=== PATIENT | male | born 1995 | race Caucasian/White ===

== ENCOUNTER 2017-07-03 20:31 | Emergency (ER) | payer OTHER ==
[2017-07-03] MEDS ORDERED: Ibuprofen TAB* 800 MG PO ONE (22:39)
[2017-07-04 00:03] VITALS: BP 137/69
--- NOTE | 2017-07-04 02:32 | ED ---
Jessy Diaz Rebecca, scribed for Shannon Alonzo MD on 07/03/17 at 2253 . Upper Extremity Pain - HPI Summary HPI Summary: Pt is a 21 y/o M who presents to ED c/o acute on chronic R shoulder and arm pain. Pt reports R shoulder pain has been chronic, though gradually worsening recently. Cites pain as being the worst on the medial side of the right elbow, which has been present for a few weeks but also gradually worsening. Pain is currently moderate, ranked 5/10 and characterized as aching and sharp. Has been treating symptoms with ice and Ibuprofen. Sx slightly alleviated by sleeping with the arm straight and aggravated by nothing. Additionally c/o right hand finger numbness. Pt has an orthopedic appointment scheduled for 3 days from today. - History of Current Complaint Chief Complaint: EDShoulderClavicleInj Stated Complaint: ARM INJURY Time Seen by Provider: 07/03/17 22:30 Hx Obtained From: Patient Onset/Duration: Still Present Timing: Lasting Weeks Severity Initially: Mild Severity Currently: Moderate - 5/10 Pain Location: Shoulder - Right, Elbow - Right Character: Sharp, Aching Aggravating Factor(s): Nothing Alleviating Factor(s): Other - Sleeping with arm straight Associated Signs & Symptoms: Positive: Numbness/Tingling - Fingers - Allergies/Home Medications Allergies/Adverse Reactions: Allergies Allergy/AdvReac Type Severity Reaction Status Date / Time No Known Allergies Allergy Verified 07/03/17 20:47 PMH/Surg Hx/FS Hx/Imm Hx Previously Healthy: Yes Endocrine/Hematology History: Denies: Hx Diabetes Cardiovascular History: Denies: Hx Coronary Artery Disease, Hx Hypertension Infectious Disease History: No Infectious Disease History: Denies: Traveled Outside the [place] in Last 30 Days - Family History Known Family History: Positive: Hypertension - Social History Alcohol Use: None Substance Use Type: Reports: None Smoking Status (MU): Never Smoked Tobacco Review of Systems Positive: Arthralgia - R shoulder and elbow pain Positive: Numbness - Right fingers All Other Systems Reviewed And Are Negative: Yes Physical Exam - Summary Physical Exam Summary: VITAL SIGNS: Reviewed. GENERAL: ~Patient is a well-developed and nourished male who is lying comfortable in the stretcher. Patient is not in any acute respiratory distress. HEAD AND FACE: No signs of trauma. No ecchymosis, hematomas or skull depressions. No sinus tenderness. EYES: PERRLA, EOMI x 2, No injected conjunctiva, no nystagmus. EARS: Hearing grossly intact. Ear canals and tympanic membranes are within normal limits. MOUTH: Oropharynx within normal limits. NECK: Supple, trachea is midline, no adenopathy, no JVD, no carotid bruit, no c- spine tenderness, neck with full ROM. CHEST: Symmetric, no tenderness at palpation LUNGS: Clear to auscultation bilaterally. No wheezing or crackles. CVS: Regular rate and rhythm, S1 and S2 present, no murmurs or gallops appreciated. EXTREMITIES: FROM in all major joints, no edema, no cyanosis or clubbing. Tenderness over the medial side of the right elbow. NEURO: Alert and oriented x 3. No acute neurological deficits. Speech is normal and follows commands. SKIN: Dry and warm Triage Information Reviewed: Yes Vital Signs On Initial Exam: Initial Vitals Temp Pulse Resp BP Pulse Ox 99 F 87 16 147/70 99 07/03/17 20:45 07/03/17 20:45 07/03/17 20:45 07/03/17 20:45 07/03/17 20:45 Vital Signs Reviewed: Yes Diagnostics - Vital Signs Vital Signs Temp Pulse Resp BP Pulse Ox 07/03/17 22:26 69 99 07/03/17 22:24 135/63 07/03/17 20:45 99 F 87 16 147/70 99 - Laboratory Lab Statement: Any lab studies that have been ordered have been reviewed, and results considered in the medical decision making process. - Radiology Shoulder XR Xray Interpretation: No Acute Changes Radiology Interpretation Completed By: ED Physician Re-Evaluation - Re-Evaluation First Eval Re-Evaluation Time: 23:44 Change: Improved Comment: Discussed results and D/C plan. Pt understands and agrees. Course/Dx - Course Assessment/Plan: Pt is a 21 y/o M who presents to ED c/o acute on chronic R shoulder and arm pain. Cites pain as being the worst on the medial side of the right elbow, which has been present for a few weeks but gradually worsening. Pain is currently moderate, ranked 5/10 and characterized as aching and sharp. Has been treating symptoms with ice and Ibuprofen. Sx slightly alleviated by sleeping with the arm straight. Additionally c/o right hand finger numbness. Pt has an orthopedic appointment scheduled for 3 days from today. Shoulder XR reveals no acute findings. In the ED course pt was given Motrin. He will be D/C to home with Dx of medial epicondylitis of the R elbow. He understands and agrees. - Diagnoses Provider Diagnoses: Medial epicondylitis, right elbow Discharge - Discharge Plan Condition: Stable Disposition: HOME Patient Education Materials: Tennis Elbow (ED) Referrals: [facility] - Kyle MONGE [Primary Care Provider] - Additional Instructions: RETURN TO EMERGENCY DEPARTMENT FOR ANY NEW OR WORSENING SYMPTOMS. Continue with scheduled orthopedist appointment. The documentation as recorded by the Jessy hassan Rebecca accurately reflects the service I personally performed and the decisions made by , Shannon Alonzo MD.
--- NOTE | 2017-07-04 07:22 | RAD ---
HISTORY: Right shoulder pain COMPARISONS: None VIEWS: 5, Frontal internal rotation, external rotation, outlet, and axillary views of the right shoulder FINDINGS: BONE DENSITY: Normal. BONES: There is no displaced fracture. JOINTS: There is no arthropathy. ALIGNMENT: There is no dislocation. SOFT TISSUES: Unremarkable. OTHER FINDINGS: None. IMPRESSION: NO ACUTE OSSEOUS INJURY. IF SYMPTOMS PERSIST, RECOMMEND REPEAT IMAGING.
== END 2017-07-04 00:02 | disposition home or self-care (01) ==
LOC: ED 20:31
DX: M77.01 Medial epicondylitis, right elbow (principal); M79.601 Pain in right arm; M25.521 Pain in right elbow
CPT/HCPCS: 99282; A9270-GY